=== PATIENT | male | born 2000 | race Caucasian/White ===

== ENCOUNTER 2019-08-24 21:47 | Emergency (ER) | payer OTHER ==
--- NOTE | 2019-08-24 23:46 | RAD ---
2 VIEWS CHEST: Date: 08/24/2019 COMPARISON: None. HISTORY: Difficulty breathing. FINDINGS: No pneumothorax, pleural fluid, focal consolidation, or alveolar edema. Heart and mediastinal contour s are unremarkable. IMPRESSION: No acute findings. POS: [facility]
== END 2019-08-25 01:06 | disposition home or self-care (01) ==
LOC: ERS 21:47
DX: F16.10 Hallucinogen abuse, uncomplicated (principal)
CPT/HCPCS: 71046; 93005